=== PATIENT | female | born 1930 | race Caucasian/White ===

== ENCOUNTER 2017-04-29 18:46 | Inpatient (IN) | payer MEDICARE, OTHER ==
[~2017-04-29] VITALS: Ht 165.1 cm; Wt 72.8 kg
[2017-04-29 21:19] LABS: HEMOGLOBIN 9.7 gm/dl (12.3-15.3); RED BLOOD COUNT 3.19 M/UL (4.00-5.10); WHITE BLOOD COUNT 14.8 K/UL (4.5-11.0)
[2017-04-30] MEDS ORDERED: NORCO 5-325 TA1 EACH PO (02:44)
[2017-04-30] MEDS ORDERED: LEVOTHYROXINE25 MCG PO (02:45)
[2017-04-30] MEDS ORDERED: MULTIVITAMINS1 EAC2 PO (02:45)
[2017-04-30] MEDS ORDERED: B-121000 MC1 PO (02:46)
[2017-04-30] MEDS ORDERED: VITAMIN D31000 UNI1 PO (02:47)
[2017-04-30] MEDS ORDERED: CALCITRIOL0.25 MCG PO (02:48)
[2017-04-30] MEDS ORDERED: LOSARTAN-HCTZ1 EACH PO (02:49)
[2017-04-30] MEDS ORDERED: DILTIAZEM 24HR240 MG PO (02:49)
[2017-04-30] MEDS ORDERED: FERROUS SULFAT325 MG PO (02:49)
[2017-04-30] MEDS ORDERED: CARVEDILOL3.125 MG PO (02:50)
[2017-04-30] MEDS ORDERED: NEURONTIN 300300 MG PO (02:50)
[2017-04-30] MEDS ORDERED: MINOXIDIL2.5 MG PO (02:53)
[2017-04-30] MEDS ORDERED: COUMADIN6 MG PO (02:54)
[2017-04-30] MEDS ORDERED: FREEZE IT RE113.4 GM TOP (02:55)
[2017-04-30] MEDS ORDERED: TYLENOL 325MG325 MG PO (02:56)
[2017-04-30] MEDS ORDERED: FAMOTIDINE20 MG PO (02:56)
[2017-04-30] MEDS ORDERED: ANALGESIC CREME85 GM TOP (02:57)
[2017-04-30 08:09] LABS: HEMOGLOBIN 9.1 gm/dl (12.3-15.3); RED BLOOD COUNT 3.04 M/UL (4.00-5.10)
[2017-05-01 04:22] LABS: HEMOGLOBIN 8.6 gm/dl (12.3-15.3); RED BLOOD COUNT 2.87 M/UL (4.00-5.10); WHITE BLOOD COUNT 13.7 K/UL (4.5-11.0)
[2017-05-02 05:18] LABS: HEMOGLOBIN 7.8 gm/dl (12.3-15.3); RED BLOOD COUNT 2.61 M/UL (4.00-5.10)
[2017-05-04 03:48] LABS: HEMOGLOBIN 8.2 gm/dl (12.3-15.3); RED BLOOD COUNT 2.72 M/UL (4.00-5.10); WHITE BLOOD COUNT 10.2 K/UL (4.5-11.0)
[2017-05-05 03:46] LABS: HEMOGLOBIN 8.1 gm/dl (12.3-15.3); RED BLOOD COUNT 2.74 M/UL (4.00-5.10); WHITE BLOOD COUNT 8.7 K/UL (4.5-11.0)
[2017-05-06 04:35] LABS: RED BLOOD COUNT 2.69 M/UL (4.00-5.10); WHITE BLOOD COUNT 8.9 K/UL (4.5-11.0)
[2017-05-07 04:24] LABS: HEMOGLOBIN 8.4 gm/dl (12.3-15.3); RED BLOOD COUNT 2.88 M/UL (4.00-5.10)
[2017-05-07 19:48] LABS: HEMOGLOBIN 9.2 gm/dl (12.3-15.3)
--- NOTE | 2017-05-09 06:35 | NUR ---
SPOKE WITH SUSANNE IN PHARMACY ABOUT ORDER DATED ON 05/04/17 THAT LOOKS LIKE D/C LEVAQUIN. INFORMED SUSANNE THAT PATIENT HASNT HAD LEVAQUIN SINCE 05/03 AT 2200 BUT SOMEONE IN PHARMACY WROTE ON 05/07 THAT PHARMACY WAS CONTINUING TO DOSE LEVAQUIN. SUSANNE SAID HE WOULD SPEAK WITH PHARMACIST THAT DOES DOSING TODAY AND SEE WHY ORDER WAS WRITTEN ON 05/07 AND THEY WOULD LET DAY SHIFT KNOW IF LEVAQUIN IS D/C OR TO BE CONTINUED.
[2017-05-09 07:15] LABS: RED BLOOD COUNT 3.02 M/UL (4.00-5.10)
[2017-05-10 06:24] LABS: RED BLOOD COUNT 3.07 M/UL (4.00-5.10); WHITE BLOOD COUNT 7.3 K/UL (4.5-11.0)
[2017-05-12 04:12] LABS: HEMOGLOBIN 8.8 gm/dl (12.3-15.3); RED BLOOD COUNT 2.98 M/UL (4.00-5.10); WHITE BLOOD COUNT 7.4 K/UL (4.5-11.0)
[2017-05-14 06:29] LABS: HEMOGLOBIN 8.1 gm/dl (12.3-15.3)
[2017-05-17 05:02] LABS: HEMOGLOBIN 8.8 gm/dl (12.3-15.3); RED BLOOD COUNT 2.96 M/UL (4.00-5.10); WHITE BLOOD COUNT 6.7 K/UL (4.5-11.0)
[2017-05-18 13:22] LABS: HEMOGLOBIN 9.5 gm/dl (12.3-15.3); RED BLOOD COUNT 3.16 M/UL (4.00-5.10)
[2017-05-18 13:32] LABS: WHITE BLOOD COUNT 9.8 K/UL (4.5-11.0)
== END 2017-05-19 13:02 | DRG 299 ==
LOC: ER1 18:46 → MED SURG 4 23:25 → ZEROF 23:25 → MED SURG 4 04-30 01:34
PROVIDERS: Emergency Medicine; Hospitalist; Internal Medicine; Internal Medicine Infectious Disease; Internal Medicine Nephrology; Legal Medicine; Physician Assistant; ADMIT Internal Medicine
DX: I82.433 Acute embolism and thrombosis of popliteal vein, bilateral (principal); G93.40 Encephalopathy, unspecified; E87.1 Hypo-osmolality and hyponatremia; N17.9 Acute kidney failure, unspecified; D68.9 Coagulation defect, unspecified; S36.892A Contusion of other intra-abdominal organs, initial encounter; E87.0 Hyperosmolality and hypernatremia; N30.01 Acute cystitis with hematuria; S32.592A Other specified fracture of left pubis, initial encounter for closed fracture; E87.5 Hyperkalemia; R33.9 Retention of urine, unspecified; I48.2 Chronic atrial fibrillation; I12.9 Hypertensive chronic kidney disease with stage 1 through stage 4 chronic kidney disease, or unspecified chronic kidney disease; N18.3 Chronic kidney disease, stage 3 (moderate); I82.411 Acute embolism and thrombosis of right femoral vein; E03.9 Hypothyroidism, unspecified; E78.5 Hyperlipidemia, unspecified; I71.4 Abdominal aortic aneurysm, without rupture; K80.20 Calculus of gallbladder without cholecystitis without obstruction; D64.9 Anemia, unspecified; I27.2 Other secondary pulmonary hypertension; I08.2 Rheumatic disorders of both aortic and tricuspid valves; E55.9 Vitamin D deficiency, unspecified; L89.322 Pressure ulcer of left buttock, stage 2; L89.312 Pressure ulcer of right buttock, stage 2; W19.XXXA Unspecified fall, initial encounter; T45.515A Adverse effect of anticoagulants, initial encounter; G31.83 Neurocognitive disorder with Lewy bodies; F02.80 Dementia in other diseases classified elsewhere, unspecified severity, without behavioral disturbance, psychotic disturbance, mood disturbance, and anxiety; Z75.1 Person awaiting admission to adequate facility elsewhere; Z74.01 Bed confinement status; Z79.01 Long term (current) use of anticoagulants; Z79.891 Long term (current) use of opiate analgesic; Z79.1 Long term (current) use of non-steroidal anti-inflammatories (NSAID); Z79.899 Other long term (current) drug therapy; Z82.49 Family history of ischemic heart disease and other diseases of the circulatory system
CPT/HCPCS: ECHO; 36415; 71010; 73522; 80048; 80053; 81001; 82140; 82550; 82553; 82570; 82607; 82728; 82746; 82962; 83540; 83550; 83735; 83880; 84100; 84132; 84133; 84156; 84300; 84439; 84443; 84484; 85014; 85018; 85025; 85027; 85610; 85730; 87040; 87077; 87086; 87186; 93005; 93306; 93970; 96374; 96375; 97110; 97530; 99284; G0378; J0696; J1815; J1956; J3430; J7030; J7040; J7050